=== PATIENT | male | born 1990 ===

== ENCOUNTER 2018-05-28 00:40 | Emergency (ER) | payer OTHER ==
--- NOTE | 2018-05-28 00:42 | PDOC ---
History of Present Illness - General Chief Complaint: Pain, Acute Stated Complaint: ABD PAIN Time Seen by Provider: 05/28/18 00:41 - History of Present Illness Initial Comments: 05/28/18 01:04 This 28-year-old man with history of epigastric pain a few months ago, seen elsewhere and was told he had "gastritis" presents with a few hour history of epigastric pain. He denies nausea/vomiting/diarrhea/fever. He ate rice and beans approximately 6 hours ago with onset of pain about 3 hours prior to presentation. Patient ate soup soon after onset of pain, thinking it would improve his symptoms but pain continued. No history of tobacco smoking (smokes cannabis daily); he denies any alcohol use. No other recreational drug use. States he has never been told he has GERD and denies frequent "heartburn" . Denies frequent NSAID/ASA use. No significant PMH Denies daily medication use No known ALLERGIES Past History - Past Medical History Allergies/Adverse Reactions: Allergies Allergy/AdvReac Type Severity Reaction Status Date / Time No Known Allergies Allergy Unverified 05/28/18 00:41 Home Medications: Ambulatory Orders Hyoscyamine Odt [Levsin Odt -] 0.125 mg PO BID PRN #10 tab.rapdis 05/28/18 Review of Systems - Review of Systems Able to Perform ROS?: Yes Comments:: 12 point review of systems is negative except for what is noted in the history of present illness *Physical Exam - Physical Exam Comments: GENERAL: Adult male, alert and oriented 3, in no acute distress HEAD: Normal with no signs of trauma. EYES: PERRLA, EOMI, sclera anicteric, conjunctiva clear. ENT: Ears normal, nares patent, oropharynx clear without exudates. Moist mucous membranes. NECK: Normal range of motion, supple without lymphadenopathy, JVD, or masses. LUNGS: Breath sounds equal, clear to auscultation bilaterally. No wheezes, and no crackles. HEART:Regular rate and rhythm, normal S1 and S2 without murmur, rub or gallop. ABDOMEN:.normal bowel sounds mild epigastric tenderness without guarding or rebound.No masses No distention. EXTREMITIES: Normal range of motion, no edema. No clubbing or cyanosis. No erythema, or tenderness. NEUROLOGICAL: Cranial nerves II through XII grossly intact. Normal speech. No focal neurological deficits. MUSCULOSKELETAL: Back non-tender to palpation, no CVA tenderness SKIN: Warm, Dry, normal turgor, no rashes or lesions noted. Medical Decision Making - Medical Decision Making 05/28/18 01:34 Exam notable for mild tenderness in the epigastrium without rebound or guarding. No other abdominal tenderness noted. Clinical presentation most consistent with mild gastritis Since patient is not nauseated and does not appeared dehydrated, placement of IV not indicated oral medications to treat gastritis were used: 38 mL of Mylanta with 0.125 mg Levsin ODT administered. Patient was significantly more comfortable after medications and no new symptoms reported. He was discharged with prescription for Levsin ODT 0.125 mg (#10) sent to his pharmacy. The patient should avoid acidic/spicy foods, maintaining a bland diet and use Mylanta/ Levsin as needed for epigastric discomfort. He states that he does have a general doctor; he should plan to see his doctor in the near future. If he experiences severe epigastric pain or nausea/vomiting/fever , he should return to the ER *DC/Admit/Observation/Transfer Diagnosis at time of Disposition: Epigastric pain - Discharge Dispostion Disposition: HOME Condition at time of disposition: Stable - Prescriptions Prescriptions: Hyoscyamine Odt [Levsin Odt -] 0.125 mg PO BID PRN #10 tab.rapdis PRN Reason: Pain - Referrals - Patient Instructions Printed Discharge Instructions: Gastritis Additional Instructions: [place] diet; avoid spicy or acidic foods Mylanta 30 mL every 6 hours as needed for stomach pain Levsin ODT up to twice a day as needed for stomach pain Return to ER if you have severe pain/vomiting/fever Follow-up with your general doctor within the next 5-7 days Print Language: MAORI - Post Discharge Activity
[2018-05-28 00:45] VITALS: BP 144/96; BMI 20.9
[2018-05-28 00:47] VITALS: PULSE 60; TEMP 98.5
[2018-05-28] MEDS ORDERED: MAG HYDROX/AL HYDROX/SIMETH -MYLANTA- ORAL SUSPENSION PO ONE (01:03)
[2018-05-28] MEDS ORDERED: HYOSCYAMINE SULFATE 0.125 MG *ODT PO ONE (01:04)
[2018-05-28] MEDS ORDERED: HYOSCYAMINE SULFATE 0.125 MG *ODT ONE (01:05)
[2018-05-28] MEDS ORDERED: MAG HYDROX/AL HYDROX/SIMETH 30 ML UNIT-DOSE CUP ONE (01:05)
== END 2018-05-28 01:32 | disposition home or self-care (01) ==
LOC: FER 00:40
DX: R10.13 Epigastric pain (principal)
CPT/HCPCS: 99282-25